=== PATIENT | female | born 1970 | race Caucasian/White ===

== ENCOUNTER 2017-11-04 23:04 | Emergency (ER) | payer BC ==
[2017-11-05 00:04] LABS: Appearance,Urine Cloudy (Clear); Bilirubin,Urine Negative (Negative); Blood,Urine Negative (Negative); Color,Urine Yellow; Glucose,Urine (UA) Negative (Negative); Ketones,Urine Negative (Negative); Leukocyte Esterase,Urine Large (Negative); Mucus,Urine Rare /hpf; Nitrite,Urine Negative (Negative); Protein,Urine Trace (Negative); RBC,Urine 7 /hpf (0-5); Squamous Epithelial Cell,Urine 20 /hpf (0-4); WBC,Urine 35 /hpf (0-5)
[2017-11-05] MEDS ORDERED: SULFAMETH-TMP DS STARTER PACK 2 TAB BTL PO STA (00:22)
--- NOTE | 2017-11-05 00:22 | ED ---
General Adult HPI - General Chief complaint: Urogenital Stated complaint: UTI Source: patient, RN notes reviewed Mode of arrival: ambulatory Limitations: no limitations - History of Present Illness Initial comments: Chief complaint and history of present illness this is a 47-year-old female who for the past 24 hours had frequency urgency and dysuria. - Related Data Previous Rx's Medication Instructions Recorded Phenazopyridine [Pyridium] 200 mg PO TID #6 tablet 11/05/17 Sulfamethox-Tmp 800-160Mg [Bactrim 1 each PO Q12HR #20 tab 11/05/17 DS 800-160 mg] Allergies Allergy/AdvReac Type Severity Reaction Status Date / Time No Known Allergies Allergy Verified 11/04/17 23:10 Review of Systems ROS Statement: Those systems with pertinent positive or pertinent negative responses have been documented in the HPI. Review of systems no other complaints other than frequency urgency dysuria. No abdominal pain no flank pain no fever. Past medical problems urinary tract infections, surgeries none. Family history cancers include skin, basal cell type and is her father had prostate prostate cancer. The patient denies any ALLERGIES nonsmoker nondrinker. ROS Other: All systems not noted in ROS Statement are negative. Past Medical History Additional Past Medical History / Comment(s): UTI History of Any Multi-Drug Resistant Organisms: None Reported Past Surgical History: No Surgical Hx Reported Past Psychological History: No Psychological Hx Reported Smoking Status: Never smoker Past Alcohol Use History: None Reported Past Drug Use History: None Reported General Exam - General Exam Comments Initial Comments: Patient is here for frequency urgency and dysuria. Prior to being seen urinalysis performed showing large leuk esterase, 7 reds and 35 whites. The patient had taken a high radium at home prior to coming emergency room. Patient's vital signs show temperature 97.8 pulse 58 respiratory rate 20 pulse ox 90% room air blood pressure 111/56. Patient denied any abdominal pain no flank pain. examination Limited to conversation only. Urine results were back immediately. The patient be placed on Bactrim DS one tablet twice a day for 10 days and advised to continue with Pyridium 3 times daily for 2 days. Increase her fluids. Advised to have her urine rechecked several days at that she finishes antibiotics. Limitations: no limitations Course Vital Signs 11/04/17 23:07 Temperature 97.8 F Pulse Rate 58 L Respiratory 20 Rate Blood Pressure 111/56 O2 Sat by Pulse 98 Oximetry Medical Decision Making - Medical Decision Making Medical decision making; patient presents with symptoms of urinary tract infection. Urinalysis shows evidence of UTI. Patient started on Bactrim and Pyridium. Patient to follow-up with family physician. - Lab Data Lab Results 11/04/17 Range/Units 23:50 Urine Color Yellow Urine Appearance Cloudy H (Clear) Urine pH 5.0 (5.0-8.0) Ur Specific [place] 1.030 (1.001-1.035) Urine Protein Trace H (Negative) Urine Glucose (UA) Negative (Negative) Urine Ketones Negative (Negative) Urine Blood Negative (Negative) Urine Nitrite Negative (Negative) Urine Bilirubin Negative (Negative) Urine Urobilinogen 2.0 (<2.0) mg/dL Ur Leukocyte Esterase Large H (Negative) Urine RBC 7 H (0-5) /hpf Urine WBC 35 H (0-5) /hpf Ur Squamous Epith Cells 20 H (0-4) /hpf Urine Mucus Rare H (None) /hpf Disposition Clinical Impression: UTI (urinary tract infection) Disposition: HOME SELF-CARE Condition: Fair Instructions: Urinary Tract Infection in Women (ED) Additional Instructions: Increase fluids, take Bactrim one tablet twice a day for 10 days. Take Pyridium 1 tablet 3 times daily for 2 days. Increase fluids. Strongly suggested to get urine rechecked several days after he finished antibiotic. Return emergency room as needed. Take Tylenol or ibuprofen for pain Prescriptions: Phenazopyridine [Pyridium] 200 mg PO TID #6 tablet Sulfamethox-Tmp 800-160Mg [Bactrim DS 800-160 mg] 1 each PO Q12HR #20 tab Is patient prescribed a controlled substance at d/c from ED?: No Referrals: Nonstaff,Physician [Primary Care Provider] - 1-2 days Time of Disposition: 00:22
[2017-11-05 00:43] VITALS: BP 139/79; PULSE 74; RESP 18; TEMP 97.7
== END 2017-11-05 00:43 | disposition home or self-care (01) ==
LOC: EC 23:04
DX: N39.0 Urinary tract infection, site not specified (principal)
CPT/HCPCS: 81001; 87086; 99283